=== PATIENT | female | born 1990 ===

== ENCOUNTER 2023-09-10 16:28 | Outpatient (REF) | payer MEDICAID, SELFPAY ==
--- OUTSIDE RECORDS SUMMARY | 2023-09-10 16:31 | XMS_ITS | CCD ---
Author Name Unknown Address [address] [place] [address] [phone] Organization Unknown Address [address] [place] [address] [phone] Care Team Providers Care Vacuum Tester Cans Name Role Phone KAISER ALONZO Attending Physician [phone] KAISER ALONZO Rounding (Secondary) Physici an [phone] Vital Signs Unknown or Not Available. Allergies Allergy Code Allergy Type Reaction Status No Known Drug Allergies 0 No known drug allergies Active Procedures Unknown or Not Available. History of Immunizations Unknown or Not Available. Problems Unknown or Not Available. Results Unknown or Not Available. Active Medications Unknown or Not Available. Medications Administered During Visit Unknown or Not Available. Encounters Encounter Diagnosis Diagnosis Code Start Date Procedure on nervous system [id number] 02/04 Social History Smoking Status Code Start Date End Date Never smoker [id number] Patient Decision Aids Unknown or Not Available. Discharge Instructions You were admitted to [facility] on 02/20/2023 00:00 with a principal diagnosis of Encounter for surgical aftercare following surgery on the nervous system You were discharged from [facility] on 02/20/2023 00:00 Should you have any questions prior to discharge, please contact a member of your healthcare team. If you have left the hospital and have any questions, please contact your primary care physician. Chief Complaint and Reason For Visit Unknown or Not Available. Function Status Unknown or Not Available. Plan of Care Unknown or Not Available. Referral/Transition of Care Unknown or Not Available.
--- OUTSIDE RECORDS SUMMARY | 2023-09-10 16:31 | XMS_ITS | CCD ---
Author Name Unknown Address [address] [place] [address] [phone] Organization Unknown Address [address] [place] [address] [phone] Care Team Providers Care Cp Bleacher Operator Name Role Phone BARBARA RODRIGUEZ Attending Physician [phone] Vital Signs Unknown or Not Available. Allergies Allergy Code Allergy Type Reaction Status No Known Drug Allergies 0 No known drug allergies Active Procedures Procedure Code Procedure Type Date Neuroplasty &/Or Transpositi on; Median Nerve At Carpal Tunnel 33266 CPT 02/12/2023 History of Immunizations Unknown or Not Available. Problems Unknown or Not Available. Results Unknown or Not Available. Active Medications Unknown or Not Available. Medications Administered During Visit Unknown or Not Available. Encounters Encounter Diagnosis Diagnosis Code Start Date Carpal tunnel syndrome, left upper limb G5602 02/12/2023 Social History Smoking Status Code Start Date End Date Never smoker [id number] Patient Decision Aids Unknown or Not Available. Discharge Instructions You were admitted to [facility] on 02/12/2023 00:21 with a principal diagnosis of Carpal tunnel syndrome, left upper limb You had the following procedures done:Neuroplasty &/Or Transposition; Median Nerve At Carpal Tunnel You were discharged from [facility] on 02/12/2023 00:22 Should you have any questions prior to [...]
--- OUTSIDE RECORDS SUMMARY | 2023-09-10 16:32 | XMS_ITS | CCD ---
Author Name Unknown Address [address] [place] [address] [phone] Organization Unknown Address [address] [place] [address] [phone] Care Team Providers Care Cdl Program Coordinator Name Role Phone PEDRITO SNIDER Attending Physician [phone] PEDRITO SNIDER Rounding (Secondary) Physici an [phone] Vital Signs Unknown or Not Available. Allergies [...] Encounters Encounter Diagnosis Diagnosis Code Start Date Calculus of gallbladder with out cholecystitis without obstruction K8020 11/03/2021 Social History Smoking Status Code Start Date End Date Never smoker [id number] Patient Decision Aids Unknown or Not Available. Discharge Instructions You were admitted to [facility] on 11/03/2021 23:58 with a principal diagnosis of Calculus of gallbladder without cholecystitis without obstruction You were discharged from [facility] on 11/03/2021 23:59 Should you have any questions prior to [...]
--- OUTSIDE RECORDS SUMMARY | 2023-09-10 16:32 | XMS_ITS | CCD ---
Author Name Unknown Address [address] [place] [address] [phone] Organization Unknown Address [address] [place] [address] [phone] Care Team Providers Care Credentials Specialist Name Role Phone PEDRITO SNIDER Attending Physician [phone] Vital Signs Vital Sign Value Unit Date/Time Recent/Initial ? BMI (Body Mass Index) 42.53 kg/m^2 10/30/2021 07: 29 Initial VS Weight Measured 240.08 lbs 10/30/2021 07:29 Ini tial VS Height 63 in 10/30/2021 07:29 Initial VS BSA (Body Surface Area) 2.2 m^2 10/30/2021 0 7:29 Initial VS BP Systolic 107 mmHg 11/03/2021 20:24 Initial VS BP Diastolic 72 mmHg 11/03/2021 20:24 Initia l VS Respiratory Rate 19 bpm 11/03/2021 20:24 In itial VS Heart Rate 84 bpm 11/03/2021 20:24 Initial VS O2 % BldC Oximetry 93 % 11/03/2021 20:24 Initial VS Body Temperature 36.2 degrees 11/03/2021 20:24 In itial VS Allergies Allergy Code Allergy Type Reaction Status No Known Drug Allergies 0 No known drug allergies Active Procedures Procedure Code Procedure Type Date Laparoscopy, Surgical; Cholecystectomy 88947 CP T 11/03/2021 Anesthesia, Intraperitoneal Proc, Upper Abdomen, w/Laparoscopy; NOS 28463 CPT 11/03/2021 History of Immunizations Unknown or Not Available. Problems Unknown or Not Available. Results TEST (URINE) QUALI TATIVE - Collect Date/Time: 11/03/2021 10:34 Test Name Code Test Result Test Units Test Ref Rang e TEST 2106-3 NEGATIVE N/A Active Medications Medications Administered During Visit Medication Dose Units Frequency Route Date/Time of Last Dose LACTATED RINGERS 1000ML 1000 ML X1 11/03/2021 10:55 CeFAZolin IVPB FROZEN PREMIX: 2GM/100ML 2 GM X1 11/03/2021 13:05 ACETAMINOPHEN INJ SDV: 1000MG/100ML 1000 MG X1 11/03/2021 10:5 6 MIDAZOLAM INJ SDV: 2MG/2ML 2 MG X1 IVP 11/03/2021 12:57 HYDROmorphone INJ SYRINGE: 0.5MG/0.5ML 0.25 MG PRN IN PACU Q5MIN IVP 11/03/2021 15:56 ONDANSETRON INJ SDV: 4MG/2ML 4 MG PRN IN PACU X1 IVP 11/03/2021 17 :09 Encounters Encounter Diagnosis Diagnosis Code Start Date Calculus of gallbladder with out cholecystitis without obstruction K8020 11/03/2021 Social History Smoking Status Code Start Date End Date Never smoker [id number] Patient Decision Aids Unknown or Not Available. Discharge Instructions You were admitted to [facility] on 11/03/2021 09:58 with a principal diagnosis of Calculus of gallbladder without cholecystitis without obstruction You had the following procedures done:Laparoscopy, Surgical; CholecystectomyAnesthesia, Intraperitoneal Proc, Upper Abdomen, w/Laparoscopy; NOS You had the following tests done: TEST (URINE) QUALITATIVE You were discharged from [facility] on 11/03/2021 17:20 Should you have any questions prior to discharge, please contact a member of your healthcare team. If you have left the hospital and have any questions, please contact your primary care physician. Chief Complaint and Reason For Visit Chief Complaint Date of Onset LAP ANKIT POSSIBLE OPEN 90MIN OP Function Status Unknown or Not Available. Plan of Care Unknown or Not Available. Referral/Transition of Care Unknown or Not Available.
--- OUTSIDE RECORDS SUMMARY | 2023-09-10 16:32 | XMS_ITS | CCD ---
Author Name Unknown Address [address] [place] [address] [phone] Organization Unknown Address [address] [place] [address] [phone] Care Team Providers Care Peoplesoft Business Analyst Name Role Phone VALERIE FONG Attending Physician [phone] Vital Signs Unknown or Not Available. Allergies Unknown or Not Available. Procedures Unknown or Not Available. History of Immunizations Unknown or Not Available. Problems Unknown or Not Available. Results FREE THYROXINE (FREE T4)* - Collect Date/Time: 09/20/2021 13:55 Test Name Code Test Result Test Units Test Ref Rang e FREE THYROXINE 3024-7 1.07 ng/dL L=0.76 H=1 .46 TSH THYROID STIMULATING HORM ONE* - Collect Date/Time: 09/20/2021 13:55 Test Name Code Test Result Test Units Test Ref Rang e TSH 3014-8 1.957 uIU/mL L=0.360 H=3.74 0 Active Medications Unknown or Not Available. Medications Administered During Visit Unknown or Not Available. Encounters Encounter Diagnosis Diagnosis Code Start Date Hypothyroidism [id number] 09/20/2021 Social History Smoking Status Code Start Date End Date Never smoker [id number] Patient Decision Aids Unknown or Not Available. Discharge Instructions You were admitted to [facility] on 09/20/2021 13:32 with a principal diagnosis of Hypothyroidism, unspecified You had the following tests done:FREE THYROXINE (FREE T4)*TSH THYROID STIMULATING HORMONE* You were discharged from [facility] on 09/20/2021 13:32 Should you have any questions prior to [...]
--- OUTSIDE RECORDS SUMMARY | 2023-09-10 16:32 | XMS_ITS | CCD ---
Author Name Unknown Address [address] [place] [address] [phone] Organization Unknown Address [address] [place] [address] [phone] Care Team Providers Care Blood Bank Manager Name Role Phone PEDRITO SNIDER Marques Attending Physician [phone] Vital Signs Unknown or Not Available. Allergies Allergy Code Allergy Type Reaction Status No Known Drug Allergies 0 No known drug allergies Active Procedures Unknown or Not Available. History of Immunizations Unknown or Not Available. Problems Unknown or Not Available. Results [facility] RICHARD HANIZABELAX* - Tom ect Date/Time: 11/01/2021 10:43 Test Name Code Test Result Test Units Test Ref Rang e Tier- PRE-OP N/A SARS COV2 RNA: 73655-0 NEGATIVE N/A REFERENCE RANGE: NEGAT Active Medications Unknown or Not Available. Medications Administered During Visit Unknown or Not Available. Encounters Encounter Diagnosis Diagnosis Code Start Date Pre-surgery testing [id number] 11/01/2021 Social History Smoking Status Code Start Date End Date Never smoker [id number] Patient Decision Aids Unknown or Not Available. Discharge Instructions You were admitted to [facility] on 11/01/2021 21:17 with a principal diagnosis of Encounter for preprocedural laboratory examination You had the following tests done:ZENA RODRIGUESID GUILLEONIX* You were discharged from [facility] on 11/01/2021 21:17 Should you have any questions prior to [...]
--- OUTSIDE RECORDS SUMMARY | 2023-09-10 16:32 | XMS_ITS | CCD ---
Author Name Unknown Address [address] [place] [address] [phone] Organization Unknown Address [address] [place] [address] [phone] Care Team Providers Care Appliance Mechanic Name Role Phone PEDRITO SNIDER Attending Physician [phone] PEDRITO SNIDER Rounding (Secondary) Physici an [phone] Vital Signs Unknown or Not Available. Allergies Unknown or Not Available. Procedures Unknown or Not Available. History of Immunizations Unknown or Not Available. Problems Unknown or Not Available. Results COMPREHENSIVE METABOLIC PANE L (CMP) - Collect Date/Time: 10/23/2021 09:19 Test Name Code Test Result Test Units Test Ref Rang e GLUCOSE 2345-7 92 mg/dL L=70 H=116 BUN 3094-0 12 mg/dL L=6 H=25 CREATININE 2160-0 0.77 mg/dL L=0.51 H=0.95 SODIUM SERUM 2951-2 141 mmol/L L=136 H=145 POTASSIUM SERUM 2823-3 4.0 mmol/L L=3.4 H=5 .2 CHLORIDE SERUM 2075-0 105 mmol/L L=96 H=110 CARBON DIOXIDE (CO2) 2028-9 30 mmol/L L=22 H=34 ANION GAP 27182-1 6.1 mmol/L CALCIUM SERUM 62018-0 8.9 mg/dL L=8.2 H=10. 2 BILIRUBIN TOTAL 1975-2 0.4 mg/dL L=0.0 H=1 .3 ALK. PHOS. 6768-6 60 U/L L=46 H=116 SGOT (AST) 1920-8 23 U/L L=15 H=37 SGPT (ALT) 1742-6 33 U/L L=12 H=78 TOTAL PROTEIN 2885-2 7.6 gm/dL L=6.0 H=8.0 ALBUMIN 1751-7 3.7 gm/dL L=3.4 H=5.0 AGE 31 years eGFR (non-Afr.Amer.) 01897-7 87 mL/min eGFR (Afr-Slovak) 34368-7 106 mL/min CBC W/ DIFFERENTIAL* - [facility] ct Date/Time: 10/23/2021 09:19 Test Name Code Test Result Test Units Test Ref Rang e WBC 6690-2 6.82 th/cmm L=5.00 H=10.00 NEUT % 61.2 % L=40.0 H=80.0 LYMPH % 28.4 % L=10.0 H=50.0 MONO % 33919-7 6.9 % L=2.0 H=12.0 EOS % 1.9 % L=0.0 H=8.0 BASO % 1.2 % L=0.0 H=3.0 IG % 2514-8 0.4 % L=0.0 H=1.1 NRBC % 72360-2 0.0 % L=0.0 H=0.0 NEUT abs count 751-8 4.2 th/cmm L=1.6 H=8. 4 LYMPH abs count 731-0 1.9 th/cmm L=1.5 H=4 .0 MONO abs count 742-7 0.5 th/cmm L=0.2 H=1. 0 EOS abs count 711-2 0.1 th/cmm L=0.0 H=0.5 BASO abs count 704-7 0.1 th/cmm L=0.0 H=0. 2 IG abs count 46736-2 0.0 th/cmm L=0.0 H=0.1 NRBC abs count 67906-8 0.0 mil/cmm L=0.0 H=0. 0 RBC 789-8 4.64 mil/cmm L=3.90 H=5.40 HEMOGLOBIN 718-7 13.9 gm/dL L=12.0 H=16.0 HEMATOCRIT 4544-3 41 % L=37 H=47 MCV 787-2 88 fL L=82 H=92 MCH 785-6 30.0 pg L=27.0 H=31.0 MCHC 786-4 33.9 % L=32.0 H=36.0 RDW-SD 788-0 39.8 fL L=39.0 H=49.0 PLATELET COUNT 777-3 340 th/cmm L=150 H=45 0 Active Medications Unknown or Not Available. Medications Administered During Visit Unknown or Not Available. Encounters Encounter Diagnosis Diagnosis Code Start Date Calculus of gallbladder with out cholecystitis without obstruction K8020 10/23/2021 Social History Smoking Status Code Start Date End Date Never smoker [id number] Patient Decision Aids Unknown or Not Available. Discharge Instructions You were admitted to [facility] on 10/23/2021 14:50 with a principal diagnosis of Calculus of gallbladder without cholecystitis without obstruction You had the following tests done:CBC W/ DIFFERENTIAL*COMPREHENSIVE METABOLIC PANEL (CMP) You were discharged from [facility] on 10/23/2021 00:00 Should you have any questions prior [...]
--- OUTSIDE RECORDS SUMMARY | 2023-09-10 16:32 | XMS_ITS | CCD ---
Author Name Unknown Address [address] [place] [address] [phone] Organization Unknown Address [address] [place] [address] [phone] Care Team Providers Care Global Director Air And Climate Change Name Role Phone PEDRITO SNIDER Attending Physician [phone] PEDRITO SNIDER Rounding (Secondary) Physici an [phone] Vital Signs Unknown or Not Available. Allergies [...] Encounters Encounter Diagnosis Diagnosis Code Start Date Encounter for follow-up exam ination after completed treatment for conditions other than malignant neoplasm Z09 11/20/2021 Social History Smoking Status Code Start Date End Date Never smoker [id number] Patient Decision Aids Unknown or Not Available. Discharge Instructions You were admitted to [facility] on 11/20/2021 08:36 with a principal diagnosis of Encntr for f/u exam aft trtmt for cond oth than malig neoplm You were discharged from [facility] on 11/20/2021 00:00 Should you have any questions prior [...]
--- OUTSIDE RECORDS SUMMARY | 2023-09-10 16:32 | XMS_ITS | CCD ---
Author Name Unknown Address [address] [place] [address] [phone] Organization Unknown Address [address] [place] [address] [phone] Care Team Providers Care Dehydrogenation Converter Helper Name Role Phone KAISER ALONZO Attending Physician [phone] KAISER ALONZO Rounding (Secondary) Physici an [phone] Vital Signs Unknown or Not Available. Allergies [...] Encounters Encounter Diagnosis Diagnosis Code Start Date Pain in left wrist [id number] 10/24/2022 Social History Smoking Status Code Start Date End Date Never smoker [id number] Patient Decision Aids Unknown or Not Available. Discharge Instructions You were admitted to [facility] on 10/24/2022 00:00 with a principal diagnosis of Pain in left wrist You were discharged from [facility] on 10/24/2022 00:00 Should you have any questions prior [...]
--- OUTSIDE RECORDS SUMMARY | 2023-09-10 16:33 | XMS_ITS | CCD ---
Author Name Unknown Address [address] [place] [address] [phone] Organization Unknown Address [address] [place] [address] [phone] Care Team Providers Care Television Script Writer Name Role Phone ARSH VAUGHN Attending Physician [phone] Vital Signs Unknown or Not Available. Allergies [...] Encounters Encounter Diagnosis Diagnosis Code Start Date Other specified cough R058 07/29/2023 Social History Smoking Status Code Start Date End Date Never smoker [id number] Patient Decision Aids Unknown or Not Available. Discharge Instructions You were admitted to [facility] on 07/29/2023 09:33 with a principal diagnosis of Other specified cough You were discharged from [facility] on 07/29/2023 09:33 Should you have any questions prior to [...]
--- OUTSIDE RECORDS SUMMARY | 2023-09-10 16:33 | XMS_ITS | CCD ---
Author Name Unknown Address [address] [place] [address] [phone] Organization Unknown Address [address] [place] [address] [phone] Care Team Providers Care Alternative Education Teacher Name Role Phone VALERIE CHAUDHARY Attending Physician [phone] Vital Signs Unknown or Not Available. Allergies Unknown or Not Available. Procedures Unknown or Not Available. History of Immunizations Unknown or Not Available. Problems Unknown or Not Available. Results COMPREHENSIVE METABOLIC PANE L (CMP) - Collect Date/Time: 05/24/2021 13:28 Test Name Code Test Result Test Units Test Ref Rang e GLUCOSE 2345-7 100 mg/dL L=70 H=116 BUN 3094-0 10 mg/dL L=6 H=25 CREATININE 2160-0 0.83 mg/dL L=0.51 H=0.95 SODIUM SERUM 2951-2 139 mmol/L L=136 H=145 POTASSIUM SERUM 2823-3 3.9 mmol/L L=3.4 H=5 .2 CHLORIDE SERUM 2075-0 103 mmol/L L=96 H=110 CARBON DIOXIDE (CO2) 2028-9 29 mmol/L L=22 H=34 ANION GAP 28904-5 7.3 mmol/L CALCIUM SERUM 33375-9 9.3 mg/dL L=8.2 H=10. 2 BILIRUBIN TOTAL 1975-2 0.6 mg/dL L=0.0 H=1 .3 ALK. PHOS. 6768-6 60 U/L L=46 H=116 SGOT (AST) 1920-8 59 U/L L=15 H=37 SGPT (ALT) 1742-6 93 U/L L=12 H=78 TOTAL PROTEIN 2885-2 7.9 gm/dL L=6.0 H=8.0 ALBUMIN 1751-7 4.1 gm/dL L=3.4 H=5.0 AGE 31 years eGFR (non-Afr.Amer.) 68262-0 80 mL/min eGFR (Afr-Macanese) 67432-5 97 mL/min FREE THYROXINE (FREE T4) - C ollect Date/Time: 05/24/2021 13:28 Test Name Code Test Result Test Units Test Ref Rang e FREE THYROXINE 3024-7 1.33 ng/dL L=0.76 H=1 .46 HEMOGLOBIN A1C - Collect Shailesh e/Time: 05/24/2021 13:28 Test Name Code Test Result Test Units Test Ref Rang e Hgb A1c 4548-4 5.3 % L=3.8 H=5.7 MEAN BLOOD GLUCOSE 95672-6 90 mg/dL TSH THYROID STIMULATING HORM ONE - Collect Date/Time: 05/24/2021 13:28 Test Name Code Test Result Test Units Test Ref Rang e TSH 3014-8 5.436 uIU/mL L=0.360 H=3.74 0 Active Medications Unknown or Not Available. Medications Administered During Visit Unknown or Not Available. Encounters Encounter Diagnosis Diagnosis Code Start Date Hypothyroidism [id number] 05/24/2021 Social History Smoking Status Code Start Date End Date Never smoker [id number] Patient Decision Aids Unknown or Not Available. Discharge Instructions You were admitted to [facility] on 05/24/2021 13:19 with a principal diagnosis of Hypothyroidism, unspecified You had the following tests done:COMPREHENSIVE METABOLIC PANEL (CMP)FREE THYROXINE (FREE T4)HEMOGLOBIN A1CTSH THYROID STIMULATING HORMONE You were discharged from [facility] on 05/24/2021 13:19 Should you have any questions prior to [...]
[2023-09-10 21:26] LABS: HCT 38.9 % (36.0-46.0); HGB 13.6 g/dL (11.2-15.7); MCH 30.2 pg (27.0-33.0); MCV 86 fL (80-95); MPV 10.3 fL (8.0-11.0); Platelet Count 390 10^3/uL (130-400); RBC 4.51 10^6/uL (3.93-5.22); RDW 12.8 % (11.7-14.6); RDW-SD 39.8 fL; WBC 10.24 10^3/uL (4.4-10.8)
[2023-09-10 21:49] LABS: ALT 51 U/L (14-59); AST 36 U/L (15-37); Albumin 3.5 g/dL (3.4-5.0); Alkaline Phosphatase 76 U/L (46-116); Anion Gap 7.5 mmol/L (3-11); BUN 8 mg/dL (7-18); Bilirubin, Total 0.3 mg/dL (0.2-1.0); CO2 27.5 mmol/L (21.0-32.0); CREATININE 0.8 mg/dL (0.55-1.02); Calcium 9.2 mg/dL (8.5-10.1); Chloride 105 mmol/L (98-107); Estimated GFR 99.71 (mL/min/1.73m2); FREE T4 1.06 ng/dL (0.76-1.46); Glucose 104 mg/dL (74-106); Potassium 3.8 mmol/L (3.5-5.1); Sodium 140 mmol/L (136-145); TSH 5.13 uIU/mL (0.36-3.74); Total Protein 7.5 g/dL (6.4-8.2)
== END 2023-09-10 16:29 | disposition home or self-care (01) ==
LOC: NCHCN 16:28
PROVIDERS: Visit Provider Family Medicine
DX: E03.9 Hypothyroidism, unspecified (principal); E66.8 Other obesity
CPT/HCPCS: 80053; 85027; 84439; 84443

== ENCOUNTER 2023-10-01 13:22 | Outpatient (CLI) | payer MEDICAID, SELFPAY ==
[2023-10-01] MEDS: Albuterol HFA 18 GM 200 PUFF INH IH (15:02)
[2023-10-01] MEDS: Methacholine 100 MG VIAL IH (15:02)
[2023-10-01] MEDS: Inhaler, Assist Device 1 EACH MC (15:03)
--- NOTE | 2023-10-03 12:13 | W.PFT ---
Date of service: 10/01/23 Time of Service: 13:31 Pulmonary Function Test Result Indications: Cough Interpretation Spirometry: There is no baseline airflow limitation. There was a 21% decrease in FEV1 with administration of 2 mg/mL Lung Volumes: Normal lung volumes Diffusion Capacity: Normal diffusion Airway Pressure: Normal airways resistance Impression Normal pulmonary function with a positive methacholine challenge Clinical Correlation therefore is recommended.
== END 2023-10-01 13:23 | disposition home or self-care (01) ==
LOC: RT 13:22
PROVIDERS: Visit Provider Registered Nurse
DX: J45.998 Other asthma (principal); R94.2 Abnormal results of pulmonary function studies
CPT/HCPCS: 94060; 94070; 94726; 94729; 94010; J7674

== ENCOUNTER 2024-12-01 15:24 | Outpatient (REF) | payer OTHER, SELFPAY ==
[2024-12-01 21:31] LABS: FREE T4 1.06 ng/dL (0.76-1.46); TSH 4.96 uIU/mL (0.36-3.74)
== END 2024-12-01 15:25 | disposition home or self-care (01) ==
LOC: NCHCN 15:24
PROVIDERS: Visit Provider Family Medicine
DX: E03.9 Hypothyroidism, unspecified (principal)
CPT/HCPCS: 84439; 84443